=== PATIENT | male | born 1955 | race Caucasian/White ===

== ENCOUNTER 2018-06-04 11:21 | Emergency (ER) | payer OTHER ==
[2018-06-04 11:41] VITALS: O2SAT 98
[2018-06-04] MEDS ORDERED: Rocephin 1000 MG INJ IM ONE (12:05)
--- NOTE | 2018-06-04 12:10 | ERPHSYRPT ---
- History of Present Illness Time Seen by Provider: 06/04/18 12:05 Source: patient, family Exam Limitations: no limitations Patient Subjective Stated Complaint: pt reports waking tuesday morning to swelling of the left ear. pt states that his ear is painful as well as his jaw and left side of his neck. pt reports fever at home yesterday. Triage Nursing Assessment: pt is aox3, pupils perrl, afebrile, resps easy and non labored, radial pulses strong and equal. pt skin pink warm dry. pt left ear is swollen, the ear is bright red, swelling noted to the left neck with redness and tenderness with light touch as well. no drainage noted. Physician History: The patient is a 62-year-old male with his complaining that he woke up Tuesday morning and noticed swelling in his left ear lobe. His earlobe has become more swollen and painful. He reports that he had a fever yesterday. He denies trauma. He wears hearing aids. His past medical history is significant for hypertension, GERD, and high cholesterol. Timing/Duration: gradual onset, yesterday Severity: severe ENT Location: ear (L) (left ear lobe) Prearrival Treatment: no prearrival treatment Modifying Factors: Improves With: nothing Associated Symptoms: ear pain (L), swollen glands, No difficulty swallowing Allergies/Adverse Reactions: No Known Drug Allergies Allergy (Unverified 06/04/18 11:40) Home Medications: ALPRAZolam [Alprazolam] 0.5 mg PO TID 06/04/18 [History] Atorvastatin Calcium 10 mg PO DAILY 06/04/18 [History] Clotrimazole/Betamet Diprop [Lotrisone Cream] 15 gm TP BID 06/04/18 [ History] Omeprazole Magnesium [Prilosec Otc] 20 mg PO DAILY 06/04/18 [History] Propranolol HCl 20 mg [Inderal 20 MG] 20 mg PO TID 06/04/18 [History] Hx Tetanus, Diphtheria Vaccination/Date Given: No Hx Influenza Vaccination/Date Given: Yes Hx Pneumococcal Vaccination/Date Given: No Immunizations Up to Date: Yes - Review of Systems Constitutional: Fever (yest) Eyes: No Symptoms Ears, Nose, & Throat: Ear Pain, No Ear Discharge, No Hearing Changes Respiratory: No Cough, No Dyspnea Cardiac: No Chest Pain, No Edema, No Syncope Abdominal/Gastrointestinal: No Abdominal Pain, No Nausea, No Vomiting, No Diarrhea Genitourinary Symptoms: No Dysuria Musculoskeletal: No Back Pain, No Neck Pain Skin: No Rash Neurological: No Dizziness, No Focal Weakness, No Sensory Changes Psychological: No Symptoms Endocrine: No Symptoms Hematologic/Lymphatic: No Symptoms Immunological/Allergic: No Symptoms All Other Systems: Reviewed and Negative - Past Medical History Pertinent Past Medical History: Yes Cardiac History: High Cholesterol, Hypertension GI Medical History: GERD - Past Surgical History Past Surgical History: Yes Gastrointestinal: Hernia Repair - Social History Smoking Status: Current every day smoker Drug Use: none Patient Lives Alone: No - Nursing Vital Signs Nursing Vital Signs: Initial Vital Signs Temperature 98.6 F 06/04/18 11:28 Pulse Rate 88 06/04/18 11:28 Respiratory Rate 18 06/04/18 11:28 Blood Pressure 185/94 06/04/18 11:28 O2 Sat by Pulse Oximetry 98 06/04/18 11:28 Pain Scale Pain Intensity 2 - Physical Exam General Appearance: no apparent distress, alert Eye Exam: bilateral eye: normal inspection, PERRL Ear Exam: right ear: auricle normal, left ear: tenderness (Examination of the left earlobe: The left earlobe is erythematous, swollen, tender. There is no obvious fluctuance or site of abscess at this time. There is no obvious site of abrasion or wound.), bilateral ear: TM normal Nasal Exam: normal inspection Throat Exam: pharynx normal, moist mucus membranes, No tonsillar exudate Neck Exam: supple Cardiovascular/Respiratory Exam: normal breath sounds, regular rate/rhythm Abdominal Exam: non-tender, soft Neurologic Exam: alert, oriented x 3, sensation nml, No motor deficits Skin Exam: normal color, warm, dry SpO2 Interpretation: normal SpO2: 98 Oxygen Delivery: Room Air - Departure Time of Disposition: 12:09 Departure Disposition: Home Clinical Impression: Cellulitis Condition: Stable Critical Care Time: No Referrals: DEANGELO DOTSON MD [Primary Care Provider] - Additional Instructions: You have cellulitis of your left earlobe. You were given Rocephin 1 g by IM in the ER. Take clindamycin 300 mg 4 times a day for 10 days. Apply warm compresses to your left earlobe 3 or 4 times a day for 10 minutes at a time. Follow-up with your primary medical doctor on Tuesday. If the conditions worsens significantly, do not hesitate to return to the ER or contact an ear nose and throat physician. Prescriptions: Clindamycin HCl 1 cap PO QID #40 capsule
[2018-06-04] MEDS ORDERED: Rocephin 1000 MG INJ ONE (12:13)
[2018-06-04 12:38] VITALS: BP 147/97; PULSE 98
== END 2018-06-04 12:38 | disposition home or self-care (01) ==
LOC: ED 11:21
DX: H60.12 Cellulitis of left external ear (principal); Z79.899 Other long term (current) drug therapy
CPT/HCPCS: 96372; 99283; J0696

== ENCOUNTER 2024-07-24 05:59 | Day surgery (SDC) | payer MEDICARE ==
[2024-07-24 06:17] VITALS: RESP 18; O2SAT 98
[2024-07-24] MEDS: CEFAZOLIN 2 GM/100 ML NaCl 2 GM/100 ML IVPB IV SCH (06:22)
[2024-07-24] MEDS: Lactated Ringers 1,000 ML IV SCH (06:24)
[2024-07-24] MEDS ORDERED: Marcaine Mpf 0.5% Vial 30 Ml ONE (06:39)
[2024-07-24] MEDS ORDERED: Xylocaine 1% Vial 30 ML PF IJ ONE (06:39)
[2024-07-24 06:47] LABS: Absolute Neutrophil Ct (ANC) 6.41 x10^3/uL (1.78-5.38); BASOPHIL % 0.8 % (0.2-1.2); Basophil (Absolute #) 0.07 x10^3/uL (0.01-0.08); Eosinophil % 1.3 % (0.8-7.0); Eosinophil (Absolute #) 0.12 x10^3/uL (0.04-0.54); Hematocrit 28.5 % (40.1-51.0); IMMATURE GRAN # 0.15 x10^3u/L (0.001-0.031); IMMATURE GRAN % 1.7 % (0.001-0.429); Lymphocyte (Absolute #) 1.24 x10^3/uL (1.32-3.57); Lymphocytes % 13.6 % (21.8-53.1); Mean Corpuscular Hemoglobin 30.3 pg (25.7-32.2); Mean Corpuscular Hgb Concent. 31.6 g/dL (32.3-36.5); Mean Platelet Volume 9.1 fL (9.4-12.4); Monocytes % 12.1 % (5.3-12.2); Neutrophil % 70.5 % (34.0-67.9); Platelet Count 214 x10^3/uL (163-337); Red Blood Count 2.97 x10^6/uL (4.63-6.08); Red Cell Distribution Width 16.4 % (11.6-14.4); White Blood Count 9.1 x10^3/uL (4.23-9.07)
[2024-07-24] MEDS ORDERED: propofoL IV ONE ×2 (06:58→07:31)
[2024-07-24] MEDS ORDERED: Versed 2 MG/2 ML Injection ONE (06:58)
[2024-07-24 07:00] LABS: ALBUMIN 4.4 g/dL (3.5-5.0); ANION GAP 12.5 MEQ/L (5-15); BILIRUBIN,TOTAL 0.9 mg/dL (0.2-1.3); Calcium 8.9 mg/dL (8.4-10.2); Creatinine 1 2.55 mg/dL (0.66-1.25); EST GLOMERULAR FILTRATION RATE 26.7 ML/MIN; Potassium 3.9 mmol/L (3.5-5.1); Total Protein 8.2 g/dL (6.3-8.2)
[2024-07-24 08:30] VITALS: TEMP 97
[2024-07-24 08:51] VITALS: BP 155/79; PULSE 77
--- NOTE | 2024-07-24 09:24 | XRAY ---
Indication: Right 3rd toe amputation. Intraoperative fluoroscopy provided for 1 second. Single digital spot image submitted for interpretation demonstrates amputation 3rd middle and distal phalanges. Correlate with intraoperative findings/report.
--- NOTE | 2024-07-24 10:04 | XRAY ---
1 second of fluoroscopy was used in surgery for a right foot third digit amputation.
--- NOTE | 2024-07-25 11:27 | OP ---
SURGERY DATE/TIME: 07/24/2024 [id number] PREOPERATIVE DIAGNOSES: 1) Gangrene of third digit, right foot. 2) Frostbite. 3) Peripheral neuropathy, secondary to chemotherapy. 4) End-stage renal disease, on dialysis. POSTOPERATIVE DIAGNOSES: 1) Gangrene of third digit, right foot. 2) Frostbite. 3) Peripheral neuropathy, secondary to chemotherapy. 4) End-stage renal disease, on dialysis. PROCEDURE: Amputation of third digit at level of interphalangeal joint (IPJ), right foot. SURGEON: Carson Alcaraz DPM I&C TECHNICIAN: Eddy Fields NP-Nikolas ANESTHESIA: Monitored anesthesia care, with intraoperative local block consisting of 10 mL of a 1:1 mixture of 1% lidocaine plain and 0.5% bupivacaine plain injected in a digital block-type fashion. HEMOSTASIS: Pressure dressing. ESTIMATED BLOOD LOSS: Minimal. MATERIALS: 4-0 Monocryl, 3-0 nylon. INDICATIONS FOR PROCEDURE: The patient is a very pleasant 68-year-old male who approximately 6 weeks prior to presentation had an event where he lost consciousness possibly due to the chemotherapy that he was on or his renal disease or a combination thereof, resulting in him passing out in an environment where the temperature was below freezing for an extended period of time. When the patient was awoken, he was medically addressed. However, they did not pay attention to his third digit at the hospital, and since then, there has been some changes to the distal tip of the toes 3, 4, and 5 in the right lower extremity. The patient had on initial inspection palpable pulses and some wounds on the tip of the fourth and fifth digits that were debrided. However, on appearance and given that the patient has had a significant amount of time for demarcation of the third digit, I do not believe that there is a possibility of salvage without extensive wound care. This necrotic tissue is a nidus for infection and potentially poses a risk. All of those risks and benefits were discussed with the patient and his , which were discussed at length including, but not limited to, infection, hematoma, seroma, possibility of delayed wound healing, non-wound healing, possibility of developing osteomyelitis and wet gangrene. Decision was made to proceed with surgical intervention understanding these risks and potential benefit. No guarantees were provided as to the outcome of surgical intervention. Plenty of time was allowed for the patient to ask questions, which were answered to his apparent satisfaction. It is at this time we decided to proceed. DESCRIPTION OF PROCEDURE AND FINDINGS: Patient was brought into the operating room and placed on the operating room table in the supine position. Monitored anesthesia care was administered until the patient was adequately sedated. The right lower extremity was prepped and draped in the typical sterile fashion and lowered onto the surgical field. At this time, a 10 mL block consisting of a 1:1 mixture of 1% lidocaine plain and 0.5% bupivacaine plain was injected in a digital block-type fashion to the third digit of the right foot. Once this was performed, a skin marker was utilized to draw the fishmouth incision, trying to encapsulate as much of the plantar skin as possible and salvage as much of the tissue that was viable as possible. This was performed, easily able to disarticulate at the level of the proximal phalanx. Incision was carried down utilizing a 10 blade down to the level of bone, disarticulating the digit at the distal interphalangeal joint. The skin margins were with heathy bleeding and pulses palpable. From that standpoint, decision was made to irrigate with copious amounts of sterile saline. Following this, 4-0 Monocryl was utilized in a simple buried interrupted-type fashion, and then simple interrupted skin closure was carried out utilizing 3-0 nylon. A dressing consisting of Betadine, Adaptic, 4 x 4, Kerlix, and Ty was then applied to the patient's right lower extremity. A surgical sandal was provided in the postoperative anesthesia care unit. The patient was reversed from anesthesia and returned to the postoperative anesthesia care unit with vital signs stable and vascular status intact. The patient handled the anesthesia as well as the procedure without significant complication. Postoperative orders as indicated in the patient's discharge chart.
== END 2024-07-24 08:53 | disposition home or self-care (01) ==
LOC: SDC 05:59
PROVIDERS: ATTEND Podiatrist Foot & Ankle Surgery
DX: I96 Gangrene, not elsewhere classified (principal); T33.821A Superficial frostbite of right foot, initial encounter; E11.42 Type 2 diabetes mellitus with diabetic polyneuropathy; E11.22 Type 2 diabetes mellitus with diabetic chronic kidney disease; N18.6 End stage renal disease
CPT/HCPCS: 28825; 36415; 73630; 76000; 80053; 82947; 85025; 93005; J0690; J2250; J2704